=== PATIENT | female | born 1965 | race Caucasian/White ===

== ENCOUNTER 2016-04-24 09:35 | Emergency (ER) | payer MEDICARE, MEDICAID ==
[~2016-04-24] VITALS: Ht 175.3 cm; Wt 144.6 kg
--- NOTE | 2016-04-24 10:06 | NUR ---
called and spoke with dr kristina edwards nurse, she states that pt has ongoing berry edema and that dr. ewdards wanted to check her heart by doing echocardiogram to determine chf. has apt to see him again on may [address] was going to call her today as soon as he has results on the echo. pt has had major hip surgery and has stated to them that she feels like her hip is going to come out, so they also ordered a hip x ray for this pt. dr. kristina edwards nurse spoke with dr. edwards and he in return called dr alford to confer on this pt. lab work and chest x-ray ordered.
[2016-04-24 10:31] LABS: ANION GAP 11.8 MEQ/L (3-15); CALCULATED IONIZED CALCIUM 3.9 mg/dL (3.8-4.6); TOTAL PROTEIN 7.1 g/dL (6.4-8.5)
[2016-04-24 11:00] LABS: BAND NEUTROPHILS % 0 % (0-6); EOSINOPHILS % 1 % (0-4); MONOCYTES % 10 % (3-11); SEGMENTED NEUTROPHILS % 65 % (51-67); TOTAL CELLS COUNTED 100
[2016-04-24 11:01] LABS: RBC MORPH NORMAL (NORMAL)
[2016-04-24 12:24] VITALS: BP 141/82
== END 2016-04-24 12:22 | disposition home or self-care (01) ==
LOC: ED 09:37
DX: L03.116 Cellulitis of left lower limb (principal); L03.115 Cellulitis of right lower limb; I87.2 Venous insufficiency (chronic) (peripheral)
CPT/HCPCS: 36415; 71020; 80053; 83880; 85025; 85379; 86140; 93970; 99283

== ENCOUNTER → 2016-04-24 | Outpatient (CLI) | payer MEDICARE, MEDICAID | LOC: RAD 08:26 | PROVIDERS: ATTEND Family Medicine | DX: M25.552 Pain in left hip (principal); I10 Essential (primary) hypertension; R60.0 Localized edema | CPT/HCPCS: 73502; 93306 ==

== ENCOUNTER → 2016-06-11 | Outpatient (CLI) | payer MEDICARE, MEDICAID ==
[~2016-06-11] MED LIST: methylPREDNISolone 80 MG/ML (DEPO MEDROL) VIAL IM ONE
== END ==
LOC: PMC 11:38
PROVIDERS: ATTEND Family Medicine
DX: M54.5 Low back pain (principal)
CPT/HCPCS: 62323; J1040